=== PATIENT | male | born 2000 | race African-American/Black ===

== ENCOUNTER 2024-01-23 19:25 | Outpatient (REF) | payer OTHER, SELFPAY ==
--- NOTE | ~2024-01-23 | MR_ITS ---
EXAMINATION: MR ELBOW WITHOUT CONTRAST, RIGHT CLINICAL INFORMATION: Instability. COMPARISON: None available. TECHNIQUE: MRI of the elbow was performed using routine sequences on a high-field scanner. FINDINGS: LIGAMENTS: Ulnar Collateral Ligament: Intact. Radial Collateral Ligament: Intact. TENDONS AND MUSCLES: Incidental note is made of an anconeus epitrochlearis muscle. There is edema signal within the more superficial fibers. Common Flexor: Mild tendinosis. No tears. Common Extensor: Intact. Biceps: Intact. Brachialis: Intact. Triceps: Mild tendinosis with peritendinitis edema at the olecranon insertion. No tears. BONE and ARTICULAR CARTILAGE: Marrow signal is normal. No fracture or malalignment. The cartilage is well preserved. No osteochondral injuries. No stress reactions. NERVES: Ulnar nerve is normal in appearance. JOINT FLUID: No effusion or loose body. SOFT TISSUES: Edema signal is present in the subcutaneous fat at the medial and posterior aspects of the elbow. A small 1.5 x 1.2 x 0.4 cm fluid collection is noted in the subcutaneous fat just superficial to the medial epicondyle, potentially corresponding to a small seroma. MR/MR elbow RT wo con IMPRESSION: 1. Mild common flexor tendinosis. No tears. 2. Mild triceps tendinosis and peritendinitis.. 3. Small 1.5 cm fluid collection in the subcutaneous fat at the medial aspect of the elbow, likely a small seroma. A superficial contusion or strain is present in the underlying anconeus epitrochlearis muscle. 4. Intact ligaments. 5. Anconeus epitrochlearis muscle constitutes a normal variant which is typically asymptomatic but can predispose to cubital tunnel syndrome. Electronically signed by: Sánchez Correia MD 01/24/2024 08:04 AM EDT
== END 2024-01-23 19:26 | disposition home or self-care (01) ==
LOC: HO.MRI 19:25
PROVIDERS: Visit Provider Student in an Organized Health Care Education/Training Program
DX: M25.531 Pain in right wrist (principal)
CPT/HCPCS: 73221